=== PATIENT | male | born 1945 | race Caucasian/White ===

== ENCOUNTER → 2017-11-25 | Outpatient (CLI) | payer BC, MEDICARE | LOC: M.MRI 16:10 | DX: G45.9 Transient cerebral ischemic attack, unspecified (principal) ==

== ENCOUNTER → 2018-08-19 | Outpatient (CLI) | payer BC, MEDICARE | LOC: M.MRI 08-14 13:17 | DX: I63.9 Cerebral infarction, unspecified (principal); I70.90 Unspecified atherosclerosis ==